=== PATIENT | male | born 1985 | race Caucasian/White ===

== ENCOUNTER → 2019-02-19 | Outpatient (CLI) | payer BC ==
[2019-02-19 14:05] LABS: HCT 46.7 % (39.0-53.0); HGB 15.9 gm/dL (13.0-17.5); Mean Platelet Volume 8.9; Platelet Count 205 k/uL (150-450); RBC 4.82 m/uL (4.30-5.90); RDW 13.2 % (11.5-15.5); WBC 6.7 k/uL (3.8-10.6)
[2019-02-19 16:44] LABS: Appearance,BF Clear; Nucleated Cells, Body Fluid 80 /uL; RBC, Body Fluid 980 /uL
[2019-02-19 16:45] LABS: Mononuclear WBC,Body Fluid 91 %; Polynuclear WBC,Body Fluid 9 %; Total Cells Counted,Body Fluid 100
[2019-02-19 18:32] LABS: Erythrocyte Sedimentation Rate 10 mm/hr (0-15)
== END | disposition home or self-care (01) ==
LOC: LABWHC1 13:06
PROVIDERS: ATTEND Orthopaedic Surgery
DX: M19.072 Primary osteoarthritis, left ankle and foot (principal); M25.462 Effusion, left knee; M70.40 Prepatellar bursitis, unspecified knee
CPT/HCPCS: 36415; 83520; 85027; 85652; 86140; 87070; 87075; 87205; 89050; 89060

== ENCOUNTER → 2020-06-10 | Outpatient (CLI) | payer BC ==
[2020-06-10 22:23] LABS: African American GFR (CKD) 110.9 (60.0-200.0); Anion Gap 14.7 mmol/L (4.00-12.00); Carbon Dioxide 22.3 mmol/L (21.6-31.8); Non-African American GFR(CKD) 95.7 (60.0-200.0)
== END | disposition home or self-care (01) ==
LOC: LABWHC1 09:41
PROVIDERS: ATTEND Family Medicine
DX: I10 Essential (primary) hypertension (principal)
CPT/HCPCS: 36415; 80051; 82565; 84520

== ENCOUNTER → 2021-04-29 | Outpatient (CLI) | payer BC ==
[2021-04-30 00:12] LABS: Basophils # (A) 0.04 X 10*3/uL (0.00-0.10); Basophils % (A) 0.9 %; Eosinophils # (A) 0.06 X 10*3/uL (0.04-0.35); Eosinophils % (A) 1.4 %; HCT 40.6 % (39.6-50.0); HGB 13.8 g/dL (13.0-17.0); Lymphocytes # (A) 1.43 X 10*3/uL (0.90-5.00); Lymphocytes % (A) 33.2 %; MCH 35.3 pg (27.0-32.0); MCV 103.8 fL (80.0-97.0); Mean Platelet Volume 12.4 fL (9.5-12.2); Monocytes # (A) 0.45 X 10*3/uL (0.20-1.00); Monocytes % (A) 10.4 %; Neutrophils # (A) 2.32 X 10*3/uL (1.80-7.70); Neutrophils % (A) 53.9 %; Platelet Count 190 X 10*3/uL (140-440); RBC 3.91 X 10*6/uL (4.40-5.60); RDW 12.8 % (11.5-14.5); WBC 4.31 X 10*3/uL (4.50-10.00)
[2021-04-30 01:23] LABS: Gliadin AB IgA, Deaminated NEGATIVE (NEGATIVE); Gliadin AB IgA, Unit 1.1 U/mL; Gliadin AB IgG, Deaminated NEGATIVE (NEGATIVE)
[2021-04-30 02:18] LABS: T4, Free (Free Thyroxine) 0.8 ng/dL (0.80-1.80)
[2021-04-30 03:00] LABS: African American GFR (CKD) 110.9 (60.0-200.0); Albumin 4.6 g/dL (3.80-4.90); Albumin/Globulin Ratio 1.64 (1.60-3.17); Anion Gap 9.7 mmol/L (4.00-12.00); Calcium 9.9 mg/dL (8.7-10.3); Carbon Dioxide 27.3 mmol/L (21.6-31.8); Chol/HDL Ratio 2.13; Globulin 2.8 g/dL (1.6-3.3); LDL Cholesterol,Calculated 61.4 mg/dL (0.0-131.0); Magnesium 1.7 mg/dL (1.5-2.4); Non-African American GFR(CKD) 95.7 (60.0-200.0); Potassium 4.1 mmol/L (3.5-5.5); Total Bilirubin 0.8 mg/dL (0.3-1.2); Total Protein 7.4 g/dL (6.2-8.2); VLDL Calculation 41.6 mg/dL (5.00-40.00)
[2021-04-30 03:38] LABS: Hemoglobin A1C 4.6 % (4.0-6.0)
== END | disposition home or self-care (01) ==
LOC: LABWHC1 16:20
PROVIDERS: ATTEND Family Medicine
DX: I10 Essential (primary) hypertension (principal); B89 Unspecified parasitic disease; Z79.899 Other long term (current) drug therapy
CPT/HCPCS: 36415; 80053; 80061; 83036; 83516; 83735; 84439; 84443; 85025

== ENCOUNTER → 2022-05-18 | Outpatient (CLI) | payer BC ==
--- NOTE | 2022-05-20 08:15 | XR ---
EXAMINATION TYPE: XR lumbar spine 2 or 3V DATE OF EXAM: 05/18/2022 CLINICAL HISTORY: pain TECHNIQUE: Three views of the lumbar spine are submitted. COMPARISON: None. FINDINGS: There are 5 lumbar type vertebral bodies identified. The lumbar spine shows satisfactory alignment w ithout evidence of acute fracture or dislocation. Vertebral body heights are within normal limits. There is mild curvature convex to the left. Moderate degenerative narrowing L3-4, L4-5 and L5-S1. [place] tral spondylosis is moderate facet joint arthropathy. The overlying soft tissue appears unremarkable . IMPRESSION: No acute fracture or dislocation is seen in the lumbar spine. ICD 10 NO FRACTURE, INITIAL EVALUATION
== END | disposition home or self-care (01) ==
LOC: RADXRMAIN 09:24
PROVIDERS: ATTEND Family Medicine
DX: M62.830 Muscle spasm of back (principal)
CPT/HCPCS: 72100

== ENCOUNTER → 2022-06-03 | Outpatient (CLI) | payer BC ==
--- NOTE | 2022-06-03 09:14 | CT ---
EXAMINATION TYPE: CT lumbar spine wo con DATE OF EXAM: 06/03/2022 COMPARISON: None HISTORY: Low back pain CT DLP: 1126.[address] of the lumbar spine was performed. Bone and soft tissue window settings are submitted as well as coronal and sagittal reconstructions. L1-L2: Mild degenerative disc space narrowing. Mild posterior disc bulge. No evidence for herniation or central stenosis. Ventral spondylosis. Foramina are patent. L2-L3: Mild degenerative disc space narrowing. Mild posterior disc bulge. No evidence for herniation or central stenosis. Ventral spondylosis. Foramina are patent. L3-L4: Mild degenerative disc space narrowing. Mild posterior disc bulge. No evidence for herniation or central stenosis. Ventral spondylosis. Foramina are patent. L4-L5: Vacuum disc changes. Mild posterior disc bulge greater posterior centrally and to the right wh ere there appears to be right lateral recess stenosis. Facet joint arthropathy with mild bilateral fo raminal encroachment. No evidence for central stenosis. L5-S1: Normal disc space height. No disc herniation protrusion or central stenosis. No facet joint arthropathy. No evidence for foraminal encroachment. No paraspinal masses are identified. Lumbar segments are free if fracture. IMPRESSION: 1. Degenerative disc disease as discussed greatest at L4-5. There appears to be right lateral recess stenosis and foraminal encroachment at this level.
== END | disposition home or self-care (01) ==
LOC: RADCTMAIN 08:23
PROVIDERS: ATTEND Family Medicine
DX: M51.36 Other intervertebral disc degeneration, lumbar region (principal); M51.26 Other intervertebral disc displacement, lumbar region
CPT/HCPCS: 72131